=== PATIENT | male | born 1945 | race Caucasian/White ===

== ENCOUNTER 2016-11-25 08:07 | Emergency (ER) | payer OTHER, MEDICARE ==
[~2016-11-25] VITALS: Ht 182.9 cm; Wt 99.7 kg
[~2016-11-25 08:07] MED LIST: AVALIDE 150/1 TABLET PO; Aspirin Chewable PO; GLYBURIDE-METF1 EAC1 PO; JANUMET 50/51 TABLET PO; LIPITOR40 MG PO; LOSARTAN-HCTZ1 EAC1; NAPROSYN500 MG PO; NIASPAN,SLO-N1000 MG PO; TOPROL XL50 MG PO; Tylenol PR; ULTRAM50 MG PO
[2016-11-25 08:27] LABS: POINT-OF-CARE METER ID UU13113778
[2016-11-25] MEDS ORDERED: FLAGYL500 MG PO (08:29)
[2016-11-25] MEDS ORDERED: CIPRO500 MG PO (08:29)
[2016-11-25 08:51] LABS: MCH 29.8 PG (29.0-34.0); MCHC 33.7 G/DL (30.0-36.0); MCV 88.6 FL (86-99); MEAN PLAT.VOLUME 9.7 uM^3 (9.0-12.4); PLATELET COUNT 183 K/uL (156-360); RBC DIS.WIDTH-CV 13.6 % (11.8-14.6); RBC DIS.WIDTH-SD 42.8 % (39-53); RED BLOOD COUNT 4.29 M/uL (4.00-5.50); WHITE BLOOD COUNT 6.7 K/uL (4.1-10.2)
[2016-11-25 09:01] LABS: CHLORIDE 108 mEq/L (99-109); POTASSIUM 2.9 mEq/L (3.7-5.4); SODIUM 140 mEq/L (136-147)
[2016-11-25 09:03] LABS: GLUCOSE 144 mg/dL (70-99)
[2016-11-25 09:04] LABS: ANION GAP 11 MEQ/L (2-14)
[2016-11-25 09:05] LABS: TOTAL BILIRUBIN 0.6 mg/dL (0.0-1.0)
[2016-11-25 09:06] LABS: ALKALINE PHOSPHATASE 53 IU/L (3-129)
[2016-11-25 09:07] LABS: GFR ESTIMATE (CALCULATED) 35 mL/min/
[2016-11-25 09:08] LABS: UREA NITROGEN (BUN) 18 mg/dL (9-23)
[2016-11-25 09:10] LABS: LIPASE 19 U/L (1.0-51.0)
[2016-11-25 10:30] VITALS: BP 135/82
== END 2016-11-25 10:40 | disposition home or self-care (01) ==
LOC: EME 08:07
PROVIDERS: Emergency Medicine
DX: K57.92 Diverticulitis of intestine, part unspecified, without perforation or abscess without bleeding (principal); K52.9 Noninfective gastroenteritis and colitis, unspecified; E87.6 Hypokalemia; N17.9 Acute kidney failure, unspecified; E11.9 Type 2 diabetes mellitus without complications; E78.5 Hyperlipidemia, unspecified; I10 Essential (primary) hypertension; Z79.82 Long term (current) use of aspirin; Z79.84 Long term (current) use of oral hypoglycemic drugs; Z87.891 Personal history of nicotine dependence
CPT/HCPCS: 80053; 82948; 83690; 85027; 99281; 99285; J7030